=== PATIENT | female | born 1930 | race African-American/Black ===

== ENCOUNTER 2016-12-05 02:08 | Emergency (ER) | payer MEDICARE, OTHER ==
[2016-12-05 02:53] LABS: Bilirubin Negative (Negative); Blood, Urine Trace (Negative); Glucose, Urine (Dipstick) 100 mg/dL (Negative); Ketone, Urine Negative (Negative); Nitrite Negative (Negative); Protein, Urine (Dipstick) Negative (Neg-Trace); Urobilinogen 0.2 mg/dL (0.2-1.0)
[2016-12-05 02:56] LABS: Bacteria/HPF None Seen HPF (None Seen); Hyaline Casts/LPF 0-3 HYALINE CAST LPF (0-3 Hyaline); RBC/HPF 0-3 HPF (0-3); Squamous Epithelial None Seen HPF (0-3); WBC/HPF None Seen HPF (0-3)
[2016-12-05 03:20] LABS: #Basophils 0.1 thou/uL (0.0-0.2); #Lymphocytes 1.6 thou/uL (1.20-3.40); #Monocytes 0.3 thou/uL (0.11-0.59); #Neutrophils 2.7 thou/uL (1.40-6.50); %Basophils 1.2 % (0.0-1.0); %Eosinophils 0.8 % (0.0-10.0); %Lymphocytes 33.1 % (21.0-51.0); %Monocytes 7.3 % (0.0-10.0); Hematocrit 40.6 % (36.0-47.0); Red Blood Cell (RBC) Count 4.55 mill/uL (4.20-5.40); White Blood Cell (WBC) Count 4.7 thou/uL (4.8-10.8)
[2016-12-05 03:26] LABS: PTT 37.1 SEC (22.9-36.1); Prothrombin Time 29.4 SEC (12.0-14.7)
[2016-12-05 03:30] LABS: Anion Gap 16 mmol/L (10-20); BUN (Urea Nitrogen) 14 mg/dL (9.8-20.1); Calc. Creatinine Clearance 0 mL/min (70-130); Calcium 10.1 mg/dL (7.8-10.44); Carbon Dioxide 22 mmol/L (23-31); Chloride 100 mmol/L (98-107); Estimated GFR-MDRD 68; Lipase 43 U/L (8-78); Magnesium 2.1 mg/dL (1.6-2.6)
--- NOTE | 2016-12-05 07:47 | RAD ---
PORTABLE CHEST 1 VIEW: DATE: 12/05/16. TIME: 2:57 a.m. HISTORY: Difficulty breathing. FINDINGS/IMPRESSION: Comparison is made with the exam of 06/03/16. The heart size is prominent but stable. The aorta is tortuous. No focal areas of consolidation, pn eumothorax, toshia pulmonary edema, or large effusions are seen. There are degenerative changes in t he right shoulder joint. Surgical clips are noted in the axillae bilaterally. POS: H
== END 2016-12-05 05:20 | disposition home or self-care (01) ==
LOC: ERS 02:08
DX: R06.00 Dyspnea, unspecified (principal); I10 Essential (primary) hypertension; I48.91 Unspecified atrial fibrillation; E11.9 Type 2 diabetes mellitus without complications; Z86.73 Personal history of transient ischemic attack (TIA), and cerebral infarction without residual deficits; Z85.3 Personal history of malignant neoplasm of breast; Z79.01 Long term (current) use of anticoagulants; Z79.84 Long term (current) use of oral hypoglycemic drugs; Z79.899 Other long term (current) drug therapy
CPT/HCPCS: 71010; 80048; 81003; 81015; 82553; 83690; 83735; 83880; 84484; 85025; 85379; 85610; 85730; 93005

== ENCOUNTER 2016-12-12 11:52 | Emergency (ER) | payer MEDICARE, OTHER ==
--- NOTE | 2016-12-12 13:27 | RAD ---
PA AND LATERAL CHEST: History: Cough, shortness of breath. Comparison: 12-05-16 FINDINGS: Heart size is enlarged. There are atherosclerotic changes of the aorta. Surgical clips are noted in both axillary regions. Lungs are clear of infiltrates. IMPRESSION: 1. Cardiomegaly. 2. Scoliosis. POS: OFF
[2016-12-12 14:16] LABS: #Lymphocytes 1.3 thou/uL (1.20-3.40); #Monocytes 0.5 thou/uL (0.11-0.59); #Neutrophils 3.1 thou/uL (1.40-6.50); %Eosinophils 0.3 % (0.0-10.0); %Lymphocytes 26.3 % (21.0-51.0); %Monocytes 9.9 % (0.0-10.0); Hematocrit 36.7 % (36.0-47.0); Mean Platelet Volume 8.3 fL (7.4-10.4); Red Blood Cell (RBC) Count 4.14 mill/uL (4.20-5.40); White Blood Cell (WBC) Count 4.9 thou/uL (4.8-10.8)
[2016-12-12 14:41] LABS: ALT (SGPT) 16 U/L (8-55); AST (SGOT) 18 U/L (5-34); Alkaline Phosphatase 72 U/L (40-150); Anion Gap 13 mmol/L (10-20); BUN (Urea Nitrogen) 13 mg/dL (9.8-20.1); Bilirubin, Total 0.6 mg/dL (0.2-1.2); Calc. Creatinine Clearance 0 mL/min (70-130); Calcium 9.7 mg/dL (7.8-10.44); Carbon Dioxide 22 mmol/L (23-31); Chloride 105 mmol/L (98-107); Estimated GFR-MDRD 67; Globulin 4.1 g/dL (2.4-3.5); Protein, Total 7.9 g/dL (6.0-8.3)
[2016-12-12] MEDS ORDERED: Albuterol Sulfate 2.5 mg/3 ml Neb ONE (14:52)
[2016-12-12 15:50] LABS: PTT 35.8 SEC (22.9-36.1)
[2016-12-12 15:54] LABS: Prothrombin Time 26.4 SEC (12.0-14.7)
== END 2016-12-12 17:35 | disposition home or self-care (01) ==
LOC: ERS 11:52
DX: R06.00 Dyspnea, unspecified (principal); E11.9 Type 2 diabetes mellitus without complications; I10 Essential (primary) hypertension; I48.91 Unspecified atrial fibrillation; Z85.3 Personal history of malignant neoplasm of breast; Z86.73 Personal history of transient ischemic attack (TIA), and cerebral infarction without residual deficits
CPT/HCPCS: 36415; 71020; 80053; 82553; 84484; 85025; 85379; 85610; 85730; 93005; 94640; 96360; J7611

== ENCOUNTER 2017-04-18 10:38 | Outpatient (CLI) | payer MEDICARE, MEDICAID ==
--- NOTE | 2017-04-18 14:33 | CT ---
CT CHEST NONCONTRAST HIGH RESOLUTION: HISTORY: Pulmonary nodule. FINDINGS: Prior exams describing pulmonary nodule are not able to be found. Small calcified granuloma is appar ent within the anterior segment right upper lobe. Please note that high resolution noncontrast technique does not well evaluate for pulmonary nodules g iven that images are included with 1 mm thickness at 10 mm intervals. A volume of data, therefore, i s not obtained. Small masses and pulmonary nodules could easily be present but not imaged. Lungs are slightly hyperinflated. There is mild peripheral interstitial thickening involving each shirley ng. Mild cylindrical dilatation of the bronchi to the right posterior lung base is present. No othe r areas of bronchiectasis. No pleural fluid or pneumothorax. Noncontrast technique does not well evaluate the mediastinum for masses. There is calcification in t he arterial structures. IMPRESSION: 1. Mild pulmonary hyperinflation with very subtle changes of interstitial fibrosis. There is mild c ylindrical bronchiectasis right lung base. 2. No pulmonary masses are visible, although the high-resolution (noncontrast) technique does not we ll evaluate for pulmonary nodules. Calcified granuloma is noted within the anterior segment right up per lobe. Note: Prior to the exam, the principal technologist did communicate to the office of the ordering clinician to confirm the ordered exam. POS: JASON
== END 2017-04-18 10:39 | disposition home or self-care (01) ==
LOC: SCSCT 10:38
PROVIDERS: ATTEND Internal Medicine
DX: R91.1 Solitary pulmonary nodule (principal); J47.9 Bronchiectasis, uncomplicated; J84.10 Pulmonary fibrosis, unspecified
CPT/HCPCS: 71250

== ENCOUNTER 2017-06-02 13:37 | Emergency (ER) | payer MEDICARE, MEDICAID ==
[~2017-06-02 13:37] MED LIST: ISOVUE-370 76%-LOCM 1 ML ONE
[2017-06-02 14:22] LABS: #Lymphocytes 1.4 thou/uL (1.20-3.40); #Monocytes 0.3 thou/uL (0.11-0.59); #Neutrophils 2.4 thou/uL (1.40-6.50); %Basophils 0.7 % (0.0-1.0); %Eosinophils 0.9 % (0.0-10.0); %Lymphocytes 32.9 % (21.0-51.0); %Monocytes 8.3 % (0.0-10.0); %Neutrophils 57.2 % (42.0-75.0); Hemoglobin 12.5 g/dL (12.0-16.0); Mean Corpuscular HGB CONC 32.6 g/dL (32.0-36.0); Mean Corpuscular Hemoglobin 29.2 pg (27.0-31.0); Mean Corpuscular Volume 89.3 fl (81.0-99.0); Mean Platelet Volume 8.5 fL (7.4-10.4); Platelet Count 187 thou/uL (130-400); RBC Distribution Width 13.9 % (11.5-14.5); Red Blood Cell (RBC) Count 4.28 mill/uL (4.20-5.40); White Blood Cell (WBC) Count 4.1 thou/uL (4.8-10.8)
--- NOTE | 2017-06-02 14:27 | RAD ---
FRONTAL VIEW CHEST: Date: 06/02/17 COMPARISON: 12/12/16. INDICATION: New onset shortness of breath. FINDINGS: Prominence of the cardiac silhouette is stable. Postsurgical change of the chest and abdomen again se en. No consolidation, effusion, or discrete pneumothorax. IMPRESSION: Stable chest. POS: [facility]
[2017-06-02 14:43] LABS: ALT (SGPT) 15 U/L (8-55); AST (SGOT) 18 U/L (5-34); Albumin 4.2 g/dL (3.4-4.8); Alkaline Phosphatase 70 U/L (40-150); Anion Gap 14 mmol/L (10-20); BUN (Urea Nitrogen) 14 mg/dL (9.8-20.1); Bilirubin, Total 0.7 mg/dL (0.2-1.2); Calc. Creatinine Clearance 0 mL/min (70-130); Calcium 10.1 mg/dL (7.8-10.44); Carbon Dioxide 22 mmol/L (23-31); Chloride 103 mmol/L (98-107); Estimated GFR-MDRD 55; Globulin 3.9 g/dL (2.4-3.5); Glucose 144 mg/dL (83-110); Potassium 3.3 mmol/L (3.5-5.1); Protein, Total 8.1 g/dL (6.0-8.3); Sodium 136 mmol/L (136-145)
[2017-06-02 16:17] LABS: CKMB 2.4 ng/mL (0-6.6); Troponin I Less than 0.010 ng/mL (< 0.028)
--- NOTE | 2017-06-02 16:28 | CT ---
CT PULMONARY ANGIOGRAM CHEST WITH CONTRAST: INDICATIONS: Shortness of breath. History of malignancy. TECHNIQUE: Multiple axial tomograms obtained through the chest following pulmonary angiogram protocol with multi planar reconstruction and 3D post processing. FINDINGS: The pulmonary arteries show adequate opacification. No evidence of pulmonary embolus identified. The lungs appear clear of infiltrate. No effusion. The mediastinum is unremarkable with no evidence of adenopathy. There is cardiomegaly. Images through the upper abdomen are unremarkable. Post cho lecystectomy changes noted. IMPRESSION: 1. No evidence of pulmonary embolus. 2. There is cardiomegaly and mild vascular engorgement. 3. Chronic appearing lung parenchymal change without evidence of focal infiltrate or effusion. POS: JASON
== END 2017-06-02 17:06 | disposition home or self-care (01) ==
LOC: ERS 13:37
DX: R06.00 Dyspnea, unspecified (principal); I48.91 Unspecified atrial fibrillation; E78.5 Hyperlipidemia, unspecified; I10 Essential (primary) hypertension
CPT/HCPCS: 36415; 36416; 71045; 71275; 80053; 82553; 84484; 85025; 93005

== ENCOUNTER 2017-07-09 10:41 | Outpatient (CLI) | payer MEDICARE, MEDICAID ==
--- NOTE | 2017-07-09 13:37 | RAD ---
DOUBLE CONTRAST BARIUM SWALLOW: Date: 07/09/17 RADIATION EXPOSURE DATA: 36 mGy*cm^2. 0.5 minutes intermittent fluoroscopy. INDICATION: 87-year-old female with history of dysphagia. FINDINGS: There are metallic clips at the upper abdomen. There is postoperative distortion of the region of the distal esophagus/GE junction region, likely related to a prior Lai fundoplication. Correlate with surgical history. Presbyesophagus is demonstrated under real-time fluoroscopy. There are transiently visualized transverse esophageal folds. There is no abnormal persistent constricting lesion or intri nsic mass effect of the esophagus. No evidence of significant gastroesophageal reflux. 12.5 mm barium tablet freely traverses the esophagus and into the stomach. [employer] imaging of the chest revealed an enlarged cardiac silhouette, vascular calcification, and metal lic clips at the bilateral axillary regions and overlying the right chest wall. IMPRESSION: 1. Presbyesophagus. 2. Postoperative distortion at the distal esophagus/GE junction region favoring sequelae from prior Lai fundoplication. Correlate with surgical history. 3. Free passage of 12.5 mm barium tablet, without evidence of persistent mass effect or constricting lesion of the esophagus. POS: JOSSIE
== END 2017-07-09 10:42 | disposition home or self-care (01) ==
LOC: RAD 10:41
PROVIDERS: ATTEND Specialist
DX: R13.10 Dysphagia, unspecified (principal); K22.8 Other specified diseases of esophagus; Z98.890 Other specified postprocedural states
CPT/HCPCS: 74220

== ENCOUNTER 2017-11-28 13:49 | Emergency (ER) | payer MEDICARE, OTHER ==
[2017-11-28] MEDS ORDERED: Meclizine HCl 25 MG TAB ONE (14:48)
== END 2017-11-28 14:55 | disposition home or self-care (01) ==
LOC: SCSER 13:49
DX: H81.12 Benign paroxysmal vertigo, left ear (principal); I48.2 Chronic atrial fibrillation; E11.9 Type 2 diabetes mellitus without complications; I10 Essential (primary) hypertension
CPT/HCPCS: 93005; 94760

== ENCOUNTER 2018-03-20 09:52 | Outpatient (CLI) | payer MEDICARE, MEDICAID ==
[2018-03-20] MEDS ORDERED: Gadobenate Dimeglumine 529 MG/1 ML (20ML VIAL) ONE (10:11)
--- NOTE | 2018-03-20 13:12 | MRI ---
MRI BRAIN WITH AND WITHOUT CONTRAST: HISTORY: Meningioma. The patient states that a spot was found on her brain in 1996. Occasional dizziness. COMPARISON: Prior mammogram is not available. TECHNIQUE: Brain MRI is performed with and without intravenous Gadolinium administration. Multisequential, mult iplanar imaging is performed. FINDINGS: No hemorrhage on the axial gradient echo sequence. No parenchymal mass, mass effect, or midline shif t. Brain volume is age appropriate. Cortical boland white matter differentiation is preserved. No ev idence of hydrocephalus. There is a nonspecific T2 hyperintensity in the left middle cranial fossa, likely representing a choroid fissure cyst, measuring 1.5 x 1.7 cm. No associated enhancement. The calvarium has a normal marrow signal intensity. Midline brain parenchymal structures are unremar kable. Note is made of an expanded, partially empty sella. There is mucosal disease of the paranasal sinuse s. T2 and FLAIR white matter hyperintensity due to chronic small vessel ischemic changes. Central arter ial flow voids are maintained. Absent restricted diffusion. There is no pathologic enhancement of the brain parenchyma. There is a punctate enhancing focus along the anterior right parafalcine region, measuring 0.4 cm, co mpatible with a small anterior right parafalcine meningioma. In the medial left middle cranial fossa , there is a T2 hypointense, homogeneously enhancing mass, measuring 2.7 x 1.4 x 2.1 cm. This lesion is extradural in location. The lesion does abut the left cavernous sinus. The lesion partial encom passes but does not occlude the left cavernous carotid artery. Imaging features are compatible with a meningioma. IMPRESSION: 1. 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 This meningioma does inv olve the left cavernous sinus and partially encompasses the cavernous left internal carotid artery. 2. Second smaller anterior right parafalcine meningioma is noted. 3. 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 POS: JOSSIE
--- NOTE | 2018-03-20 13:26 | BD ---
DEXA BONE DENSITOMETRY: (Dual energy X-ray Absorptiometry) 03/20/2018 HISTORY: An 87-year-old postmenopausal white female for baseline, age-related osteoporosis screening examinati on. COMPARISON: None available. FINDINGS: The bone mineral density (BMD) is given in grams per square centimeter (g/cm2): LUMBAR SPINE: BMD(g/cm2) T-score L1: 0.797 -1.8 L2: 0.861 -1.5 L3: 0.802 -2.6 L4: 0.930 -1.2 Total: 0.850 -1.8 HIP: Femoral neck: 0.432 -3.8 Total: 0.646 -2.4 IMPRESSION: 1) The mean bone mineral density of the lumbar spine is osteopenic. Fracture risk is increased. 2) The bone mineral density of the femoral neck is osteoporotic. Fracture risk is high. [employer] POS: JOSSIE
== END 2018-03-20 09:53 | disposition home or self-care (01) ==
LOC: BICMRI 09:52
PROVIDERS: ATTEND Internal Medicine
DX: Z13.820 Encounter for screening for osteoporosis (principal); D32.0 Benign neoplasm of cerebral meninges; M85.88 Other specified disorders of bone density and structure, other site; M81.0 Age-related osteoporosis without current pathological fracture; Z78.0 Asymptomatic menopausal state
CPT/HCPCS: 70553; 77080; A9579

== ENCOUNTER 2018-10-22 09:36 | Outpatient (CLI) | payer MEDICARE, MEDICAID ==
--- NOTE | 2018-10-22 13:38 | MRI ---
MRI BRAIN WITH AND WITHOUT CONTRAST: DATE: 10/22/18 HISTORY: 88-year-old female with meningioma D33.2 and headache R51. COMPARISON: 03/20/18. TECHNIQUE: Multiple sequences obtained in axial, sagittal, and coronal planes; pre and post IV injection of gado linium-based contrast agent: 14 mL MultiHance. FINDINGS: The tiny 0.5 x 0.5 x 0.2 cm focal lesion at the anterior right interhemispheric falx mentioned as a t iny meningioma, actually has intrinsic T1 shortening on noncontrast image (T1 precontrast image , series 5), and therefore is consistent with either a tiny focal dural calcification or tiny ossi fication, rather than a meningioma. There has been no interval change in the homogeneously enhancing extraaxial mass at the medial aspect of the left middle cranial fossa which covers the lateral surface of the left cavernous sinus, surro unds a portion of the left cavernous carotid, and covers a portion of the left supraclinoid internal carotid, which it displaces slightly superiorly. Previous measurements were given as 2.7 x 1.4 x 2.1 cm. When measured using slightly different placement of cursors, measurements of 3.1 x 1.6 x 3.1 cm a re obtained, today, but it has not changed in size. Abutting the lateral edge of that, there is an ap proximately 1.9 x 1.5 x 1.9 cm cyst at the medial anterior aspect of the left temporal lobe. There is also unchanged. Other than the mild mass effect by the meningioma on the left supraclinoid internal carotid artery, t here is no other mass effect. No midline shift. No obstructive hydrocephalus. No restricted diffusion . No extra-axial fluid collection. No recent intracranial hemorrhage. Mild to moderate chronic ischem ic white matter changes, typical for age 88 years. IMPRESSION: 1. Single left middle cranial fossa meningioma 2. adjacent left temporal lobe cyst. 3. No interval change since 03/20/18. [employer] POS: JYOTSNA
== END 2018-10-22 09:37 | disposition home or self-care (01) ==
LOC: TBSIIMAG 09:36
PROVIDERS: ATTEND Surgery
DX: D32.0 Benign neoplasm of cerebral meninges (principal); G93.0 Cerebral cysts; R51 Headache
CPT/HCPCS: 70553; 82565

== ENCOUNTER 2019-04-01 06:51 | Emergency (ER) | payer MEDICARE, MEDICAID ==
[2019-04-01 07:38] LABS: #Lymphocytes 1.5 thou/uL (1.20-3.40); #Monocytes 0.3 thou/uL (0.11-0.59); #Neutrophils 2.3 thou/uL (1.40-6.50); %Basophils 0.9 % (0.0-1.0); %Lymphocytes 36.1 % (21.0-51.0); %Monocytes 7.6 % (0.0-10.0); %Neutrophils 54.4 % (42.0-75.0); Hemoglobin 11.4 g/dL (12.0-16.0); Mean Corpuscular HGB CONC 33.6 g/dL (32.0-36.0); Mean Corpuscular Hemoglobin 29.5 pg (27.0-31.0); Mean Corpuscular Volume 87.8 fL (78.0-98.0); Mean Platelet Volume 7.9 fL (7.4-10.4); Platelet Count 206 thou/uL (130-400); RBC Distribution Width 14.1 % (11.5-14.5); Red Blood Cell (RBC) Count 3.86 mill/uL (4.20-5.40); White Blood Cell (WBC) Count 4.2 thou/uL (4.8-10.8)
[2019-04-01 07:53] LABS: ALT (SGPT) 11 U/L (8-55); AST (SGOT) 14 U/L (5-34); Alkaline Phosphatase 59 U/L (40-110); Anion Gap 12 mmol/L (10-20); BUN (Urea Nitrogen) 14 mg/dL (9.8-20.1); Bilirubin, Total 0.4 mg/dL (0.2-1.2); CK (CPK) 64 U/L (29-168); Calc. Creatinine Clearance 0 mL/min (70-130); Calcium 9.5 mg/dL (7.8-10.44); Carbon Dioxide 24 mmol/L (23-31); Chloride 102 mmol/L (98-107); Estimated GFR-MDRD 60; Globulin 3.7 g/dL (2.4-3.5); Glucose 144 mg/dL (83-110); Lipase 40 U/L (8-78); Potassium 3.5 mmol/L (3.5-5.1); Protein, Total 7.7 g/dL (6.0-8.3); Sodium 134 mmol/L (136-145)
--- NOTE | 2019-04-01 07:58 | RAD ---
Chest AP view INDICATION: Shortness of breath COMPARISON: June 02, 2017 FINDINGS: Lungs:Chronic lung changes are stable. No new airspace consolidation. Cardiac silhouette:Stable mild cardiomegaly Pulmonary vasculature:Normal Pleural spaces:No pleural effusion or pneumothorax is demonstrated. Upper abdomen:No abnormality seen. Osseous structures: No acute fracture or subluxation demonstrated. There is scattered degenerative an d osteoarthritic change present. There is elevation of the right humeral head which can be seen with rotator cuff insufficiency. This is stable to the prior exam. Additional findings:Numerous surgical clips within the axillary regions and upper abdomen are stable. IMPRESSION: Stable cardiomegaly without evidence of cardiac decompensation.
[2019-04-01 08:00] LABS: Bilirubin Negative (Negative); Blood, Urine Negative (Negative); Clarity Clear (Clear); Glucose, Urine (Dipstick) Normal (Negative); Leukocyte Negative Leu/uL (Negative); Nitrite Negative (Negative); Protein, Urine (Dipstick) Negative (Neg-Trace); Urobilinogen Normal mg/dL (Less than 2)
== END 2019-04-01 09:16 | disposition home or self-care (01) ==
LOC: ERS 06:51
DX: S46.812A Strain of other muscles, fascia and tendons at shoulder and upper arm level, left arm, initial encounter (principal); R06.00 Dyspnea, unspecified; F41.9 Anxiety disorder, unspecified; I48.91 Unspecified atrial fibrillation; I10 Essential (primary) hypertension; E11.9 Type 2 diabetes mellitus without complications; Z86.73 Personal history of transient ischemic attack (TIA), and cerebral infarction without residual deficits; Z79.899 Other long term (current) drug therapy; Z79.01 Long term (current) use of anticoagulants; Z79.84 Long term (current) use of oral hypoglycemic drugs
CPT/HCPCS: 36415; 36416; 71045; 80053; 81003; 82550; 83690; 83880; 84484; 85025; 85379; 87804

== ENCOUNTER 2019-04-29 02:27 | Emergency (ER) | payer MEDICARE, MEDICAID ==
[2019-04-29] MEDS ORDERED: Aspirin Chewable 81 MG TAB ONE (02:51)
[2019-04-29 03:35] LABS: #Basophils 0.1 thou/uL (0.0-0.2); #Lymphocytes 1.5 thou/uL (1.20-3.40); #Monocytes 0.5 thou/uL (0.11-0.59); #Neutrophils 2.2 thou/uL (1.40-6.50); %Basophils 1.6 % (0.0-1.0); %Eosinophils 1.1 % (0.0-10.0); %Monocytes 10.9 % (0.0-10.0); %Neutrophils 51.4 % (42.0-75.0); Hemoglobin 11.5 g/dL (12.0-16.0); Mean Corpuscular HGB CONC 34.1 g/dL (32.0-36.0); Mean Corpuscular Hemoglobin 30.1 pg (27.0-31.0); Mean Corpuscular Volume 88.3 fL (78.0-98.0); Mean Platelet Volume 8.5 fL (7.4-10.4); Platelet Count 187 thou/uL (130-400); Red Blood Cell (RBC) Count 3.83 mill/uL (4.20-5.40); White Blood Cell (WBC) Count 4.2 thou/uL (4.8-10.8)
[2019-04-29 03:52] LABS: ALT (SGPT) 13 U/L (8-55); AST (SGOT) 16 U/L (5-34); Alkaline Phosphatase 61 U/L (40-110); Anion Gap 14 mmol/L (10-20); BUN (Urea Nitrogen) 13 mg/dL (9.8-20.1); Bilirubin, Total 0.4 mg/dL (0.2-1.2); Calc. Creatinine Clearance 0 mL/min (70-130); Calcium 9.9 mg/dL (7.8-10.44); Carbon Dioxide 24 mmol/L (23-31); Chloride 104 mmol/L (98-107); Estimated GFR-MDRD 67; Globulin 3.9 g/dL (2.4-3.5); Glucose 142 mg/dL (83-110); Potassium 3.5 mmol/L (3.5-5.1); Protein, Total 7.9 g/dL (6.0-8.3); Sodium 138 mmol/L (136-145)
--- NOTE | 2019-04-29 07:37 | RAD ---
XR Chest 1 View Portable History: Chest pain Comparison: Radiograph April 01, 2019 Findings: Mild scarring lung bases. Heart size upper limits of normal. Right rotator cuff arthropathy . Densely calcified tracheobronchial tree. Impression: Chronic findings. No acute intrathoracic abnormality.
--- NOTE | 2019-05-02 00:53 | EKG ---
Test Reason : Blood Pressure : / mmHG Vent. Rate : 057 BPM Atrial Rate : 076 BPM P-R Int : 000 ms QRS Dur : 106 ms QT Int : 426 ms P-R-T Axes : 000 -40 028 degrees QTc Int : 414 ms Atrial fibrillation with slow ventricular response Left axis deviation Minimal voltage criteria for LVH, may be normal variant Septal infarct , age undetermined Abnormal ECG Confirmed by FILOMENA MONROE ([id number]), social media editor TEO NICHOLS ([id number]) on 05/02/2019 12:52:53 AM Referred By: Confirmed By:FILOMENA MONROE
== END 2019-04-29 04:03 | disposition home or self-care (01) ==
LOC: ERS 02:27
DX: M94.0 Chondrocostal junction syndrome [Tietze] (principal); E11.9 Type 2 diabetes mellitus without complications; I10 Essential (primary) hypertension; F41.9 Anxiety disorder, unspecified; I48.91 Unspecified atrial fibrillation; Z79.01 Long term (current) use of anticoagulants; Z79.899 Other long term (current) drug therapy; Z79.84 Long term (current) use of oral hypoglycemic drugs
CPT/HCPCS: 36415; 71045; 80053; 84484; 85025; 93005

== ENCOUNTER 2020-04-09 18:03 | Emergency (ER) | payer MEDICARE, MEDICAID ==
[2020-04-09 19:55] LABS: #Basophils 0.1 thou/uL (0.0-0.2); #Lymphocytes 1.3 thou/uL (1.20-3.40); #Monocytes 0.4 thou/uL (0.11-0.59); #Neutrophils 1.8 thou/uL (1.40-6.50); %Basophils 1.5 % (0.0-1.0); %Eosinophils 0.7 % (0.0-10.0); %Lymphocytes 36.6 % (21.0-51.0); %Monocytes 11.7 % (0.0-10.0); %Neutrophils 49.5 % (42.0-75.0); Hemoglobin 12.8 g/dL (12.0-16.0); Mean Corpuscular HGB CONC 33.3 g/dL (32.0-36.0); Mean Corpuscular Hemoglobin 29.1 pg (27.0-31.0); Mean Corpuscular Volume 87.3 fL (78.0-98.0); Mean Platelet Volume 8.1 fL (7.4-10.4); Platelet Count 199 thou/uL (130-400); Red Blood Cell (RBC) Count 4.39 mill/uL (4.20-5.40); White Blood Cell (WBC) Count 3.6 thou/uL (4.8-10.8)
[2020-04-09 20:19] LABS: ALT (SGPT) 14 U/L (8-55); AST (SGOT) 17 U/L (5-34); Albumin 4.3 g/dL (3.4-4.8); Alkaline Phosphatase 66 U/L (40-110); Anion Gap 17 mmol/L (10-20); BUN (Urea Nitrogen) 11 mg/dL (9.8-20.1); Bilirubin, Total 0.4 mg/dL (0.2-1.2); Calc. Creatinine Clearance 0 mL/min (70-130); Calcium 9.4 mg/dL (7.8-10.44); Carbon Dioxide 21 mmol/L (23-31); Chloride 103 mmol/L (98-107); Globulin 3.8 g/dL (2.4-3.5); Glucose 162 mg/dL (83-110); Potassium 3.6 mmol/L (3.5-5.1); Protein, Total 8.1 g/dL (5.8-8.1); Sodium 137 mmol/L (136-145)
--- NOTE | 2020-04-09 20:23 | RAD ---
PORTABLE CHEST ONE VIEW: Date: 04-09-2020 Time: 6:21 p.m. History: Shortness of breath Comparison: 04-29-2019 FINDINGS: The heart size is borderline. The aorta is tortuous. The lungs are well expanded without lobar consol idation, pneumothoraces or pleural effusions. The tracheobronchial tree remains densely calcified. Ch ronic parenchymal changes are again seen. No lobar consolidation, pneumothoraces, or pleural effusion s are intact. Right rotator cuff arthropathy is again seen. IMPRESSION: No acute process. POS: MAYCOLA
[2020-04-09] MEDS ORDERED: Lidocaine 1% (PF) 30 ML VIAL ONE (20:28)
== END 2020-04-09 21:45 | disposition home or self-care (01) ==
LOC: ERS 18:03
DX: M62.838 Other muscle spasm (principal); R51.9 Headache, unspecified; I48.91 Unspecified atrial fibrillation; E11.9 Type 2 diabetes mellitus without complications; I10 Essential (primary) hypertension; Z86.73 Personal history of transient ischemic attack (TIA), and cerebral infarction without residual deficits
CPT/HCPCS: 36415; 36416; 71045; 80053; 83880; 84484; 85025; 93005; J2001

== ENCOUNTER 2020-09-22 11:56 | Outpatient (CLI) | payer MEDICARE, MEDICAID | END 2020-09-22 11:57 | disposition home or self-care (01) | LOC: BICULT 11:56 | PROVIDERS: ATTEND Internal Medicine | DX: D17.79 Benign lipomatous neoplasm of other sites (principal); R93.89 Abnormal findings on diagnostic imaging of other specified body structures | CPT/HCPCS: 76999 ==